=== PATIENT | female | born 1995 | race Caucasian/White ===

== ENCOUNTER 2017-11-20 08:16 | Inpatient (IN) | payer BC ==
[2017-11-20] MEDS ORDERED: Naloxone 0.4 MG/ML Syringe IVPUSH PRN (09:03)
[2017-11-20] MEDS ORDERED: diphenhydrAMINE 50 MG/ML SDV IVPUSH PRN ×2 (09:03→10:45)
[2017-11-20] MEDS ORDERED: Nalbuphine 10 MG/1 ML Vial IVPUSH PRN (09:03)
[2017-11-20] MEDS ORDERED: Sodium Chloride 0.9% 2.5 ML Syringe FLUSH PRN (09:19)
[2017-11-20] MEDS ORDERED: ceFAZolin 2 GM in Premix Bag 1 BAG IV ONE (09:19)
[2017-11-20] MEDS ORDERED: Sodium Chloride 0.9% 10 ML Syringe FLUSH PRN (09:19)
--- NOTE | 2017-11-20 09:22 | PCM.PREANE ---
Preanesthetic Assessment - Procedure Proposed Procedure: second ; in labor with SROM per Dr. Geiger - Anesthesia/Transfusion/Family Hx Anesthesia History: Prior Anesthesia Without Reaction Family History of Anesthesia Reaction: No Intubation History: Unknown Additional History: wears glasses; severe heartburn daily; present. - Review of Systems General: Other (Senses labor) Pulmonary: No Symptoms Cardiovascular: No Symptoms Gastrointestinal: Other (GERD of ) Neurological: Other (labor) Other: Reports: Anxiety - Physical Assessment NPO Status Date: 11/19/17 NPO Status Time: 22:00 ASA Class: 2E Mental Status: Alert & Oriented x3 Airway Class: Mallampati = 2 Dentition: Reports: Normal Dentition Thyro-Mental Finger Breadths: 3 Mouth Opening Finger Breadths: 3 ROM/Head Extension: Full (short neck) Lungs: Clear to Auscultation, Normal Respiratory Effort Cardiovascular: Regular Rate, Regular Rhythm, No Murmurs Other: quite emotional (tearing easily) - Lab Values: Laboratory Last Values WBC 11.73 K/uL (4.0-11.0) H 11/20/17 09:00 RBC 4.08 M/uL (4.30-5.90) L 11/20/17 09:00 Hgb 12.5 g/dL (12.0-16.0) 11/20/17 09:00 Hct 36.4 % (36.0-46.0) 11/20/17 09:00 MCV 89.2 fL (80.0-98.0) 11/20/17 09:00 MCH 30.6 pg (27.0-32.0) 11/20/17 09:00 MCHC 34.3 g/dL (31.0-37.0) 11/20/17 09:00 RDW Std Deviation 46.8 fl (28.0-62.0) 11/20/17 09:00 RDW Coeff of My 15 % (11.0-15.0) 11/20/17 09:00 Plt Count 243 K/uL (150-400) 11/20/17 09:00 MPV 10.90 fL (7.40-12.00) 11/20/17 09:00 Neut % (Auto) 71.4 % (48.0-80.0) 11/20/17 09:00 Lymph % (Auto) 23.1 % (16.0-40.0) 11/20/17 09:00 [place] % (Auto) 4.8 % (0.0-15.0) 11/20/17 09:00 Eos % (Auto) 0.6 % (0.0-7.0) 11/20/17 09:00 Baso % (Auto) 0.1 % (0.0-1.5) 11/20/17 09:00 Neut # (Auto) 8.4 K/uL (1.4-5.7) H 11/20/17 09:00 Lymph # (Auto) 2.7 K/uL (0.6-2.4) H 11/20/17 09:00 [place] # (Auto) 0.6 K/uL (0.0-0.8) 11/20/17 09:00 Eos # (Auto) 0.1 K/uL (0.0-0.7) 11/20/17 09:00 Baso # (Auto) 0.0 K/uL (0.0-0.1) 11/20/17 09:00 Nucleated RBC % 0.0 /100WBC 11/20/17 09:00 Nucleated RBCs # 0 K/uL 11/20/17 09:00 - Allergies Allergies/Adverse Reactions: Allergies Allergy/AdvReac Type Severity Reaction Status Date / Time codeine Allergy Chest Verified 10/31/17 10:39 Tightness - Blood Blood Available: Yes Product(s) Available: PRBC (T and S) - Anesthesia Plan Pre-Op Medication Ordered: Antacids - Acknowledgements Anesthesia Type Planned: Spinal Pt an Appropriate Candidate for the Planned Anesthesia: Yes Alternatives and Risks of Anesthesia Discussed w Pt/Guardian: Yes Pt/Guardian Understands and Agrees with Anesthesia Plan: Yes PreAnesthesia Questionnaire - CURRENT (IN HOUSE) MEDS Current Meds: Current Medications Diphenhydramine HCl (Benadryl) 25 mg IVPUSH Q4H PRN PRN Reason: Itching Stop: 11/21/17 09:03 Nalbuphine HCl (Nubain) 5 mg IVPUSH Q3H PRN PRN Reason: Pruritis Stop: 11/21/17 09:03 Naloxone HCl (Narcan) 0.1 mg IVPUSH ONETIME PRN PRN Reason: Respiratory Depression Stop: 12/23/17 09:03
[2017-11-20] MEDS ORDERED: Citric Acid/Sodium Citrate Solution 30 ML Cup PO SCH (09:30)
[2017-11-20] MEDS ORDERED: Lactated Ringers 1,000 ML IV SCH ×2 (09:30→10:45)
[2017-11-20] MEDS ORDERED: Oxytocin/0.9 % Sodium Chloride 30 UNIT/500 ML BAG IV SCH (09:30)
[2017-11-20] MEDS ORDERED: Morphine PF 10 MG/10 ML SDV ONE (09:31)
[2017-11-20] MEDS ORDERED: Ondansetron 4 MG/2 ML SDV ONE (09:31)
[2017-11-20] MEDS ORDERED: Oxytocin 10 Units/1 ML SDV ONE (09:31)
[2017-11-20] MEDS ORDERED: ceFAZolin 1 GM Vial ONE (10:03)
[2017-11-20] MEDS ORDERED: Sodium Chloride 0.9% 20 ML ONE (10:03)
[2017-11-20] MEDS ORDERED: Phenylephrine/Normal Saline 100 MCG/ML 10 ML Syringe ONE (10:06)
[2017-11-20] MEDS ORDERED: Midazolam 1 MG/ML 2 ML SDV ONE (10:09)
[2017-11-20] MEDS ORDERED: Octyl 2-Cyanoacrylate 1 Tube ONE (10:31)
[2017-11-20] MEDS ORDERED: Ondansetron 4 MG/2 ML SDV IV PRN (10:45)
[2017-11-20] MEDS ORDERED: Bisacodyl 10 MG Supp RECTAL PRN (10:45)
[2017-11-20] MEDS ORDERED: Lanolin 100% Cream 7 GM Tube TOP PRN (10:45)
--- NOTE | 2017-11-20 10:45 | PCM.OPNOTE ---
- General Post-Op/Procedure Note Date of Surgery/Procedure: 11/20/17 Operative Procedure(s): repeat low transverse Findings: very thin lower uterine segment, liveborn female 9 weigit 5#4 oz, normal tubes and ovaries. Pre Op Diagnosis: 37 4/7 weeks, labor, prior Post-Op Diagnosis: Same Anesthesia Technique: Spinal Primary Surgeon: Danika Geiger Anesthesia Provider: Placido Jordan Nuclear Medicine Pet Ct Technologist: Gunnar Morse Fluid Replacement, Intraop: 1,000 EBL in mLs: 500 Complications: None Known Condition: Good
--- NOTE | 2017-11-20 11:08 | PCM.POSTAN ---
POST ANESTHESIA ASSESSMENT - MENTAL STATUS Mental Status: Alert, Oriented - RESPIRATORY Respiratory Status: Respiratory Rate WNL, Airway Patent, O2 Saturation Stable - CARDIOVASCULAR CV Status: Pulse Rate WNL, Blood Pressure Stable - GASTROINTESTINAL GI Status: No Symptoms - POST OP HYDRATION Hydration Status: Adequate & Stable
--- NOTE | 2017-11-20 11:16 | OR ---
SURGEON: Danika Geiger M.D. DATE OF PROCEDURE: 11/20/2017 PREOPERATIVE DIAGNOSES: 1. A 37 and 4/7th weeks intrauterine . 2. Previous delivery. 3. Group B strep negative. 4. Active spontaneous labor with spontaneous rupture of membranes. ANESTHESIA: Spinal. ESTIMATED BLOOD LOSS: 500 mL. FLUIDS: 1000 mL of crystalloid. FINDINGS: Liveborn female, score 9 and 9, weighing 5 pounds 4 ounces. Normal- appearing uterus, tubes, and ovaries. However, the lower uterine segment was extremely thin and did not require a scalpel for hysterotomy. COMPLICATIONS: None known. DISPOSITION: Mother is in recovery in good condition. Baby is in nursery in good condition. BRIEF HISTORY: This is a 22-year-old female, G4, P1-0-2-1 she presents at 37 and 4/7th weeks' gestation in active spontaneous labor, group B strep negative with spontaneous rupture of membranes, clear fluid, variable decelerations, otherwise reassuring heart tones, overall category II. She had a planned delivery scheduled for December 01. She was therefore consented for section with risks discussed including bleeding, infection, injury to bowel, bladder, blood vessels, injury to other organs, risk of thromboembolic event, and risk of anesthesia. Understanding all of these risks, she does desire to proceed. DESCRIPTION OF PROCEDURE: After the establishment of adequate spinal analgesia, the abdomen was prepped with chlorhexidine and draped in usual fashion for abdominal surgery. Appropriate time-out was held and documentation of appropriate analgesia was performed. The prior cicatrix was excised and the incision was carried through the subcutaneous tissue to the fascia, which was scored transversely in the midline. The fascial incision was extended laterally using curved Ferris scissors. The fascia was elevated from the underlying rectus muscle. Using sharp and blunt dissection, the rectus muscles were sharply in the midline. A finger was used to enter the peritoneal cavity. There were no anterior adhesions. Therefore, the incision was extended using sharp and blunt dissection. The Napoleon O retractor was placed. The visceroperitoneum was well below the field of dissection and as I was evaluating the peritoneum a finger was placed into the uterine cavity performing a hysterotomy. This incision was extended using blunt dissection. The membranes were further ruptured, clear fluid was noted. The head was delivered via the uterine incision with fundal pressure with subsequent delivery of the infant's shoulders and body without any difficulty. The was bulb suctioned by nose and mouth. Cord was clamped x2 and cut and the infant was handed to the entry level assistant manager in attendance at delivery. The was a liveborn female, score 9 and 9, weighing 5 pounds 4 ounces. Cord blood was collected for cord ABGs as well as routine cord blood sampling. Placenta was removed by manual extraction. The cervix was opened with a ring forceps. A dry laparotomy tape was used to clean the uterine cavity. The uterine incision was then closed with a running lock suture of 0 Polysorb followed by an imbricating layer of 0 Polysorb. A single [id number] suture was placed at the right aspect of the incision for complete hemostasis. The pericolic gutters and posterior cul-de- sac were cleaned. Tubes and ovaries were inspected and appeared normal. The uterine incision was again inspected, it remained completely hemostatic. Therefore, the Napoleon O retractor was removed. The parietal peritoneum and the rectus muscle were loosely approximated in the midline using a running mattress suture of 0 Polysorb. The posterior aspect of the fascia was inspected and was hemostatic. The fascial incision was closed with a running suture of 0 Polysorb. Subcutaneous tissue was irrigated. Any areas of bleeding that were noted were cauterized. The skin was closed with subcuticular suture of 3-0 Polysorb followed by skin glue. Final sponge, needle, and instrument counts were reported as correct. There were no known complications. Mother is in recovery in good condition. is in nursery in good condition. WILL / KALA /[id number]
[2017-11-20] MEDS: Ketorolac 30 MG/ML SDV IVPUSH SCH ×3 (11:17→23:13)
--- NOTE | 2017-11-20 11:52 | HP ---
DATE OF : 1995 PRIMARY CARE PHYSICIAN: None PCP CHIEF COMPLAINT: Spontaneous rupture of membranes. HISTORY: This is a 22-year-old female, -0-2-1. She presents at 37 and 4/7th weeks with an EDC of 12/08/2017 with 1 prior section. Planning a repeat delivery, which was scheduled for November. She has regular contractions every 5-8 minutes and is grossly ruptured with clear fluid. Therefore, we will proceed with a repeat low transverse section at this time. She is blood type O positive, rubella immune, group B strep negative. has been uncomplicated except for anxiety. PAST MEDICAL HISTORY: Significant for depression and anxiety. ALLERGIES: To codeine, which causes chest tightness. PRIOR SURGERIES: delivery and tonsillectomy. FAMILY HISTORY: Significant for maternal grandfather with lung cancer, ; maternal grandmother with hypertension; brother with diabetes; and mother with type 2 diabetes. SOCIAL HISTORY: She is single. Sexually active. Denies use of tobacco, alcohol, or street drugs. CURRENT MEDICATIONS: vitamins once daily and Tylenol as needed for pain. PHYSICAL EXAMINATION: VITAL SIGNS: Blood pressure is 127/79, pulse is 94, heart tones 140s with moderate variability, variable decelerations are present with contractions. She is jimmy every 5-8 minutes. LUNGS: Clear. CV: Regular without murmur. ABDOMEN: Soft, gravid, nontender. Estimated weight of 3000 g. EXTREMITIES: Show trace edema. VAGINA: 1, 50, 0 station. ASSESSMENT AND PLAN: A 22-year-old, G4, P1-0-2-1, 37 and 4/7th weeks. Active labor. Spontaneous rupture of membranes. Group B strep negative. Prior . Desires repeat. Category II heart tones. Proceed with repeat low transverse section. Risks including bleeding, infection, injury to bowel, bladder, blood vessels, injury to other organs, risk of thromboembolic event, were discussed. Understanding all these risks, she does desire to proceed. WILL ARMENDARIZ /[id number]
[2017-11-20] MEDS: Docusate Sodium 100 MG Cap PO SCH (23:13)
[2017-11-21] MEDS: Ketorolac 30 MG/ML SDV IVPUSH SCH ×2 (04:50→10:54)
--- NOTE | 2017-11-21 06:47 | PCM48HPAN ---
Post Anesthesia Note - EVALUATION WITHIN 48HRS OF ANESTHETIC Vital Signs in Normal Range: Yes Patient Participated in Evaluation: Yes Respiratory Function Stable: Yes Airway Patent: Yes Cardiovascular Function Stable: Yes Hydration Status Stable: Yes Pain Control Satisfactory: Yes Nausea and Vomiting Control Satisfactory: Yes Mental Status Recovered: Yes
[2017-11-21] MEDS ORDERED: Acetaminophen/HYDROcodone 325-5 MG Tab PO PRN (10:29)
--- NOTE | 2017-11-21 10:33 | PCM.PNPP ---
- General Info Date of Service: 11/21/17 Functional Status: Reports: Pain Controlled, Tolerating Diet, Ambulating - Review of Systems General: Reports: No Symptoms HEENT: Reports: No Symptoms Pulmonary: Reports: No Symptoms Cardiovascular: Reports: No Symptoms Gastrointestinal: Reports: No Symptoms Genitourinary: Reports: No Symptoms Musculoskeletal: Reports: No Symptoms Skin: Reports: No Symptoms Neurological: Reports: No Symptoms Psychiatric: Reports: No Symptoms - Patient Data Vital Signs - Most Recent: Last Vital Signs Temp 37.3 C 11/21/17 09:00 Pulse 65 11/21/17 09:00 Resp 17 11/21/17 09:00 BP 129/78 11/21/17 09:00 Pulse Ox 97 11/21/17 09:00 Weight - Most Recent: 93.44 kg I&O - Last 24 Hours: Intake & Output 11/20/17 11/21/17 11/21/17 22:59 06:59 14:59 Output Total 250 Balance -250 Lab Results - Last 24 Hours: Laboratory Results - last 24 hr 11/21/17 Range/Units 06:06 Hgb 9.6 L (12.0-16.0) g/dL Hct 28.8 L (36.0-46.0) % Med Orders - Current: Current Medications Hydrocodone Bitart/Acetaminophen (Valley 325-5 Mg) 1 tab PO Q4H PRN PRN Reason: Pain Bisacodyl (Dulcolax) 10 mg RECTAL .ONCE PRN PRN Reason: Constipation Citric Acid/Sodium Citrate (Bicitra Solution) 30 ml PO .ONCE LUCIO Diphenhydramine HCl (Benadryl) 25 mg IVPUSH Q6H PRN PRN Reason: Itching or Nausea Docusate Sodium (Colace) 100 mg PO BID [facility] Last Admin: 11/20/17 23:13 Dose: 100 mg Emollient Ointment (Lansinoh Hpa) 0 gm TOP ASDIRECTED PRN PRN Reason: Sore Nipples Lactated Ringer's (Ringers, Lactated) 1,000 mls @ 500 mls/hr IV .BOLUS [facility] Last Admin: 11/20/17 20:31 Dose: 500 mls/hr Oxytocin/Sodium Chloride (Oxytocin 30 Unit/500 Ml-Ns) 30 unit in 500 mls @ 250 mls/hr IV TITRATE [facility] Lactated Ringer's (Ringers, Lactated) 1,000 mls @ 125 mls/hr IV ASDIRECTED [facility] Last Admin: 11/20/17 12:05 Dose: 125 mls/hr Ibuprofen (Motrin) 800 mg PO Q8H PRN PRN Reason: mild pain or fever Ketorolac Tromethamine (Toradol) 30 mg IVPUSH Q6H [facility] Stop: 11/21/17 10:46 Last Admin: 11/21/17 04:50 Dose: 30 mg Ondansetron HCl (Zofran) 4 mg IV Q4H PRN PRN Reason: Nausea/Vomiting Last Admin: 11/20/17 14:45 Dose: 4 mg Sodium Chloride (Saline Flush) 10 ml FLUSH ASDIRECTED PRN PRN Reason: Keep Vein Open Sodium Chloride (Saline Flush) 2.5 ml FLUSH ASDIRECTED PRN PRN Reason: Keep Vein Open Discontinued Medications Cefazolin Sodium (Ancef) Confirm Administered Dose 2 gm .ROUTE .STK-MED ONE Stop: 11/20/17 10:04 Diphenhydramine HCl (Benadryl) 25 mg IVPUSH Q4H PRN PRN Reason: Itching Stop: 11/21/17 09:03 Glycopyrrolate () Confirm Administered Dose 1 mg .ROUTE .STK-MED ONE Stop: 11/20/17 10:04 Cefazolin Sodium/Dextrose 2 gm (/ Premix) 50 mls @ 100 mls/hr IV ONETIME ONE Stop: 11/20/17 09:48 Last Admin: 11/21/17 03:44 Dose: Not Given Sodium Chloride (Normal Saline) Confirm Administered Dose 20 mls @ as directed .ROUTE .STK-MED ONE Stop: 11/20/17 10:04 Midazolam HCl (Versed 1 Mg/Ml) Confirm Administered Dose 2 mg .ROUTE .STK-MED ONE Stop: 11/20/17 10:10 Morphine Sulfate (Duramorph Pf) Confirm Administered Dose 10 mg .ROUTE .STK-MED ONE Stop: 11/20/17 09:32 Nalbuphine HCl (Nubain) 5 mg IVPUSH Q3H PRN PRN Reason: Pruritis Stop: 11/21/17 09:03 Naloxone HCl (Narcan) 0.1 mg IVPUSH ONETIME PRN PRN Reason: Respiratory Depression Stop: 11/21/17 09:03 Octyl Cyanoacrylate (Dermabond Advance) Confirm Administered Dose 1 applic .ROUTE .STK-MED ONE Stop: 11/20/17 10:32 Ondansetron HCl (Zofran) Confirm Administered Dose 4 mg .ROUTE .STK-MED ONE Stop: 11/20/17 09:32 Oxytocin (Pitocin) Confirm Administered Dose 20 unit .ROUTE .STK-MED ONE Stop: 11/20/17 09:32 Phenylephrine HCl (Phenylephrine In Ns 100 Mcg/Ml) Confirm Administered Dose 1 mg .ROUTE .STK-MED ONE Stop: 11/20/17 10:07 - Interaction Infant Disposition, : [place] in Room with Family Feeding: Attempted ; Nursed Fair/Poor Support Person: Significant Other - Recovery Exam Fundal Tone: Firm Fundal Level: 2 Fingerbreadths Below Umbilicus Fundal Placement: Midline Lochia Amount: Scant Lochia Color: Rubra/Red Perineum Description: Intact, Minimal Bruising/Swelling Bladder Status: Indwelling Catheter in Place Urinary Elimination: Indwelling Catheter - Exam General: Alert, Oriented HEENT: Pupils Equal Neck: Supple Lungs: Clear to Auscultation, Normal Respiratory Effort Cardiovascular: Regular Rate, Regular Rhythm GI/Abdominal Exam: Normal Bowel Sounds, Soft, Non-Tender, No Organomegaly, No Distention Extremities: Normal Inspection, Normal Range of Motion, Non-Tender, No Pedal Edema, Normal Capillary Refill Skin: Warm, Dry, Intact Wound/Incisions: Healing Well Neurological: No New Focal Deficit Psy/Mental Status: Alert, Normal Affect, Normal Mood - Problem List Review Problem List Initiated/Reviewed/Updated: Yes - My Orders Last 24 Hours: My Active Orders 11/20/17 10:45 Ambulate [RC] PER UNIT ROUTINE Antiembolic Devices [RC] PER UNIT ROUTINE Communication Order [RC] PER UNIT ROUTINE May Shower [RC] ASDIRECTED Notify Provider Intake and Out [RC] ASDIRECTED Notify Provider Vital Signs [RC] ASDIRECTED RT Incentive Spirometry [RC] Q2HWA Bisacodyl [Dulcolax] 10 mg RECTAL .ONCE PRN Ketorolac [Toradol] 30 mg IVPUSH Q6H Lactated Ringers [Ringers, Lactated] 1,000 ml IV ASDIRECTED Lanolin [Lansinoh HPA] See Dose Instructions TOP ASDIRECTED PRN Ondansetron [Zofran] 4 mg IV Q4H PRN diphenhydrAMINE [Benadryl] 25 mg IVPUSH Q6H PRN Abdominal Binder [OM.PC] Routine Assess Lochia [WOMSER] Per Unit Routine Assess Uterine Involution [WOMSER] Per Unit Routine Breast Pump [WOMSER] Per Unit Routine Peripheral IV Discontinue [OM.PC] Routine Sequential Compression Device [OM.PC] Per Unit Routine 11/20/17 21:00 Docusate Sodium [Colace] 100 mg PO BID 11/20/17 Dinner Regular Diet [DIET] 11/21/17 10:29 Acetaminophen/HYDROcodone [Valley 325-5 MG] 1 tab PO Q4H PRN 11/21/17 17:00 Ibuprofen [Motrin] 800 mg PO Q8H PRN - Assessment Assessment:: POD#1 after repeat , stable, denies pain, tolerating diet, ambulating, would like to go home today. discussed reaction to codeine-- check tightness and prior pain medication was tramadol which made her very nauseated. Discussed with pharmacy, since she is tolerating Duramorph, there should be minimal risk with hydrocodone. - Plan Plan:: start oral hydrocodone, to confirm that she will tolerate prior to discharge. If stable this afternoon may dismiss to home, discharge instructions reviewed.
[2017-11-21] MEDS: Docusate Sodium 100 MG Cap PO SCH (10:52)
[2017-11-21] MEDS ORDERED: Ibuprofen 800 MG Tab PO PRN (17:00)
== END 2017-11-21 19:00 | disposition home or self-care (01) | DRG 540 ==
LOC: MW.OBCHECK 08:16 → MW.OB 08:20 → MW.OBCHECK 09:47 → MW.OB 09:48
PROVIDERS: ADMIT Obstetrics & Gynecology; ATTEND Obstetrics & Gynecology
PROC: 10D00Z1 Extraction of Products of Conception, Low, Open Approach (ICD-10-PCS; principal; 2017-11-20)
DX: O42.02 Full-term premature rupture of membranes, onset of labor within 24 hours of rupture (principal); Z3A.37 37 weeks gestation of pregnancy; Z37.0 Single live birth; Z88.8 Allergy status to other drugs, medicaments and biological substances
CPT/HCPCS: 01961; 36415; 59025; 85014; 85018; 85025; 86850; 86900; 86901; A9270-GY; J0690; J1885; J2250; J2270; J2405; J2590; J7120

== ENCOUNTER 2020-10-13 22:06 | Emergency (ER) | payer BC ==
--- NOTE | 2020-10-13 22:52 | EDM.PDOC ---
ED HPI GENERAL MEDICAL PROBLEM - General Chief Complaint: Abdominal Pain Stated Complaint: NO [place] MOVEMENT Time Seen by Provider: 10/13/20 22:24 - History of Present Illness INITIAL COMMENTS - FREE TEXT/NARRATIVE: History of present illness: [] Patient complains that she has no bowel movement for 2 weeks. She is use MiraLAX Dulcolax. Today she gave her self an enema and the enema nausea when and in the water when without any difficulty but she did not have any results. Patient feels uncomfortable with lower abdominal pressure. It is constant not very severe. Now she developed nausea. Her appetite is decreased. She is able to eat and drink and not vomiting. Her menstrual period now. She is a Ab0. Review of systems: As per history of present illness and below otherwise all systems reviewed and negative. Past medical history: As per history of present illness and as reviewed below otherwise noncontributory. Surgical history: As per history of present illness and as reviewed below otherwise nonco ntributory. Social history: No reported history of drug or alcohol abuse. Family history: As per history of present illness and as reviewed below otherwise noncontributory. Physical exam: Constitutional - well developed, well-nourished and in no acute distress HEENT - normocephalic, no evidence of trauma - external nose and mouth normal - no mass in neck and no JVD - mucosae moist EYES - full EOM, PERRL, no icterus - no evidence of inflammation, injection, or drainage Respiratory - no respiratory distress, equal bilateral expansion, lungs clear to auscultation and no abnormal lung sounds Cardiovascular - Regular Rhythm with S1 and S2 appreciated and no murmur, gallop or rub. GI - abdomen soft without distension or organomegaly - normal bowel sounds - no guard or rebound Musculoskeletal no gross deformity of long bones or joints - no tenderness, swelling or edema Neurologic - Alert and oriented times four - CN II-XII grossly intact - motor sensory and coordination symmetrically normal Psychiatric - appropriate mood and affect with normal thought content Hematologic - No petechiae or purpura - mucosa appropriate color and sclera not pale - normal nail bed color and refill Integument - no rash or evidence of trauma - normal turgor Diagnostics: [] Therapeutics: [] Impression: [] Plan: [] Definitive disposition and diagnosis as appropriate pending reevaluation and review of above. abd pain Pain Score (Numeric/FACES): 7 - Related Data Allergies Allergy/AdvReac Type Severity Reaction Status Date / Time codeine Allergy Chest Verified 10/13/20 22:37 Tightness Home Meds: Home Meds . [No Known Home Meds] 10/13/20 [History] Past Medical History - Past Health History Medical/Surgical History: Denies Medical/Surgical History Gastrointestinal History: Reports: Other (See Below) Other Gastrointestinal History: HERNIA, CONSTIPATION - Infectious Disease History Infectious Disease History: Reports: Chicken Pox ED ROS GENERAL - Review of Systems Review Of Systems: Comprehensive ROS is negative, except as noted in HPI. ED EXAM, GENERAL - Physical Exam Exam: See Below Free Text/Narrative:: My physical exam is in the HPI Course - Vital Signs Text/Narrative:: 2346 hrs. the was negative and a KUB showed constipation throughout most of the colon. There was no evidence of obstruction. Patient was discharged with instructions to manage this at home. Last Recorded V/S: Last Vital Signs Temp 36.4 C 10/13/20 22:25 Pulse 99 10/13/20 22:25 Resp 16 10/13/20 22:25 BP 133/76 10/13/20 22:25 Pulse Ox 96 10/13/20 22:25 - Orders/Labs/Meds Orders: Active Orders 24 hr Category Date Time Status KUB [Abdomen 1V Flat] [CR] Stat Exams 10/13/20 23:32 Ordered Labs: Laboratory Tests 10/13/20 Range/Units 23:05 HCG, Qual NEGATIVE (NEG) Departure - Departure Time of Disposition: 23:47 Disposition: Home, Self-Care 01 Condition: Good Clinical Impression: Abdominal pain, Constipation - Discharge Information Instructions: Constipation, Adult Referrals: PCP,None [Primary Care Provider] - Forms: ED Department Discharge Additional Instructions: Magnesium citrate is the way to empty her self out quickly. We use this to prep people for colonoscopy. It is available [id number] and you can take a bottle each night for a couple of nights as long as you drink plenty of fluids to replace which he might lose when you start to go. There are 2 kinds of laxatives. He should use a stool forming laxative or stool softener such as Colace Dulcolax or MiraLAX along with a lot of water. When you feel that there is stool but you are not able to pass it you can use Ex-Lax, senna, or mag citrate to empty. If you are vomiting or have severe abdominal pain or fever when you have constipation that constitutes a reason to come to the emergency department. [facility] - Primary Care [address] [place] [id number] [facility] [address] [place] [id number] The following information is given to patients seen in the emergency department who are being discharged to home. This information is to outline your options for follow-up care. We provide all patients seen in our emergency department with a follow-up referral. The need for follow-up, as well as the timing and circumstances, are variable depending upon the specifics of your emergency department visit. If you don't have a primary care physician on staff, we will provide you with a referral. We always advise you to contact your personal physician following an emergency department visit to inform them of the circumstance of the visit and for follow-up with them and/or the need for any referrals to a consulting specialist. The emergency department will also refer you to a specialist when appropriate. This referral assures that you have the opportunity for follow-up care with a specialist. All of these measure are taken in an effort to provide you with optimal care, which includes your follow-up. Under all circumstances we always encourage you to contact your private physician who remains a resource for coordinating your care. When calling for follow-up care, please make the office aware that this follow-up is from your recent emergency room visit. If for any reason you are refused follow-up, please contact the [facility] Emergency Department at and asked to speak to the emergency department charge nurse. Sepsis Event Note (ED) - Evaluation Sepsis Screening Result: No Definite Risk - Focused Exam Vital Signs: Vital Signs Temp Pulse Resp BP Pulse Ox 10/13/20 22:25 36.4 C 99 16 133/76 96 - My Orders Last 24 Hours: My Active Orders 10/13/20 23:32 KUB [Abdomen 1V Flat] [CR] Stat - Assessment/Plan Last 24 Hours: My Active Orders 10/13/20 23:32 KUB [Abdomen 1V Flat] [CR] Stat
--- NOTE | 2020-10-14 00:32 | CR ---
CLINICAL INDICATION: Abdominal pain. Constipation. FINDINGS: The intestinal gas pattern is normal. There are approximately 5 intrarenal calculi within the left kidney measuring up to 3 mm each. There is a moderate volume of stool in the ascending colon. The visualized lung bases are clear. There are a few pelvic phleboliths. IMPRESSION: Small intrarenal calculi of the left kidney. Moderate volume stool in the ascending colon. Dictated by Shamir Harper MD @ Oct 14 2020 12:28AM Signed by Dr. Shamir Harper @ Oct 14 2020 12:30AM
== END 2020-10-14 00:06 | disposition home or self-care (01) ==
LOC: MW.ED 22:06
DX: K59.00 Constipation, unspecified (principal); Z88.5 Allergy status to narcotic agent
CPT/HCPCS: 36415; 74018; 74018-26; 84703; 99283; 99284-25